=== PATIENT | female | born 1955 | race Hispanic/Latino ===

== ENCOUNTER 2016-03-07 08:34 | Outpatient (CLI) | payer MEDICARE ==
[2016-03-07] MEDS ORDERED: XYLOCAINE TOPICAL 2% ONE (09:17)
[2016-03-07] MEDS ORDERED: XYLOCAINE TOPICAL 2% TP ONE (13:21)
== END 2016-03-07 08:35 | disposition home or self-care (01) ==
LOC: WOUND 08:34
PROVIDERS: ATTEND Podiatrist
DX: L97.522 Non-pressure chronic ulcer of other part of left foot with fat layer exposed (principal); L89.892 Pressure ulcer of other site, stage 2; I48.1 Persistent atrial fibrillation; M19.90 Unspecified osteoarthritis, unspecified site; M06.9 Rheumatoid arthritis, unspecified; Z87.891 Personal history of nicotine dependence

== ENCOUNTER 2016-03-14 08:57 | Outpatient (CLI) | payer MEDICARE ==
[2016-03-14] MEDS ORDERED: XYLOCAINE TOPICAL 2% TP ONE ×2 (09:24→12:12)
== END 2016-03-14 08:58 | disposition home or self-care (01) ==
LOC: WOUND 08:57
PROVIDERS: ATTEND Podiatrist
DX: L89.892 Pressure ulcer of other site, stage 2 (principal); L97.521 Non-pressure chronic ulcer of other part of left foot limited to breakdown of skin; M06.9 Rheumatoid arthritis, unspecified; M19.90 Unspecified osteoarthritis, unspecified site; Z87.891 Personal history of nicotine dependence

== ENCOUNTER 2016-03-28 07:55 | Outpatient (CLI) | payer MEDICARE | END 2016-03-28 07:56 | disposition home or self-care (01) | LOC: WOUND 07:55 | PROVIDERS: ATTEND Podiatrist | DX: L89.893 Pressure ulcer of other site, stage 3 (principal); M06.9 Rheumatoid arthritis, unspecified; M19.90 Unspecified osteoarthritis, unspecified site; Z87.891 Personal history of nicotine dependence | CPT/HCPCS: 99212; G0463 ==